=== PATIENT | female | born 1960 | race Caucasian/White ===

== ENCOUNTER 2019-07-05 21:55 | Emergency (ER) | payer OTHER ==
[~2019-07-05] VITALS: Ht 172.7 cm; Wt 104.3 kg
[2019-07-05] MEDS ORDERED: ZOLOFT20 MG/1 ML (22:02)
[2019-07-05] MEDS ORDERED: NEURONTIN600 MG PO (22:03)
[2019-07-05] MEDS ORDERED: LEVOTHYROXINE0.5 GM (22:03)
[2019-07-06] MEDS ORDERED: PROMETHAZINE HC25 M1 PO (23:25)
== END 2019-07-06 01:23 | disposition home or self-care (01) ==
LOC: ED 21:55
DX: G43.909 Migraine, unspecified, not intractable, without status migrainosus (principal); Z87.891 Personal history of nicotine dependence; Z88.5 Allergy status to narcotic agent; Z79.899 Other long term (current) drug therapy
CPT/HCPCS: 96361; 96374; 96375; 99284-25; J1200; J1885; J2405; J2765; J7030